=== PATIENT | female | born 1990 | race African-American/Black ===

== ENCOUNTER 2019-10-09 14:38 | Emergency (ER) | payer OTHER ==
[~2019-10-09] VITALS: Ht 154.9 cm; Wt 49.9 kg
[~2019-10-09 14:38] MED LIST: APAP500; BACTRIM DS TAB1 EACH PO; IBUPROFEN 600600 M1; LANOLIN56 GM; NORCO 5-325 TA1 EACH; PRENATAL
[2019-10-09 16:04] LABS: ABSOLUTE NEUTROPHILS 12.1 thou/uL (1.4-8.2); BASOPHILS 0.6 % (0.0-2.0); HEMATOCRIT 41.4 % (37.0-47.0); HEMOGLOBIN 13.9 gm/dL (12.0-15.0); LYMPHOCYTES 11.3 % (24.0-44.0); MCH 29.7 pg (26.0-34.0); MCHC 33.5 g/dL (28.0-37.0); MCV 88.7 fL (80.0-100.0); MONOCYTES 6.4 % (1.0-8.0); PLATELET COUNT 262 thou/uL (150-400); POLYS 81.7 % (36.0-66.0); RBC 4.67 mil/uL (4.20-5.00); WBC 14.8 thou/uL (4.0-11.0)
[2019-10-09 16:11] LABS: ANION GAP 12 mmol/L (7-16); BUN 12 mg/dL (7-18); CALCIUM 9.6 mg/dL (8.5-10.1); CHLORIDE 99 mmol/L (98-107); CO2 26 mmol/L (21-32); CREATININE 0.7 mg/dL (0.6-1.0); GLUCOSE 115 mg/dL (74-106); POTASSIUM 3.1 mmol/L (3.5-5.1); SODIUM 137 mmol/L (136-145)
[2019-10-09 16:22] LABS: ALBUMIN 4.7 g/dL (3.4-5.0); MAGNESIUM 1.9 mg/dL (1.8-2.4); SALICYLATE < 2.8 mg/dL (2.8-20.0); SGOT 17 U/L (15-37); SGPT 12 U/L (30-65); TOTAL BILIRUBIN 0.4 mg/dL (<0.1-1.0); TOTAL PROTEIN 8.8 g/dL (6.4-8.2); TROPONIN-I <0.06 ng/mL (<0.06)
[2019-10-09] MEDS ORDERED: ATIVAN1 M1 PO (16:42)
[2019-10-09 16:53] LABS: URINE BILIRUBIN NEGATIVE (Negative); URINE BLOOD TRACE (Negative); URINE CLARITY CLEAR; URINE COLOR YELLOW; URINE GLUCOSE-RANDOM* NEGATIVE (Negative); URINE KETONES 1+ (Negative); URINE LEUKOCYTES-REFLEX NEGATIVE (Negative); URINE NITRITE-REFLEX NEGATIVE (Negative); URINE PROTEIN (DIPSTICK) NEGATIVE (Negative); URINE UROBILINOGEN 0.2 E.U./dl (0.2-1.0)
[2019-10-09 17:02] LABS: AMP/METHAMP Negative (Negative); BARBITURATES Negative (Negative); BENZODIAZEPINES Negative (Negative); COCAINE POSITIVE (Negative); METHADONE Negative (Negative); OPIATES Negative (Negative); PCP Negative (Negative)
[2019-10-09 17:03] VITALS: BP 134/90
--- NOTE | 2019-10-11 09:42 | EKG ---
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: JEFF : 1990 Requested By: Brenna Salvador Order Number: [id number] MD: Matteo Anthony Measurements Intervals Spring Rate: 142 P: 82 VT: 105 QRS: 76 QRSD: 73 T: -43 QT: 302 QTc: 464 Interpretive Statements Sinus tachycardia Nonspecific ST segment abnormality Compared to ECG 06/18/2011 11:12:32 Heart rate has increased Electronically Signed On 10-11-2019 9:40:39 CDT by Matteo Anthony [email or web address] <ELECTRONICALLY SIGNED> By: Matteo Anthony MD, FACC 10/11/19 0940 [id number] Matteo Anthony MD, [facility] /EPI
== END 2019-10-09 17:03 | disposition home or self-care (01) ==
LOC: ER 14:38
PROVIDERS: Emergency Medicine
DX: R00.0 Tachycardia, unspecified (principal); F14.10 Cocaine abuse, uncomplicated; F41.9 Anxiety disorder, unspecified; R00.2 Palpitations; F17.210 Nicotine dependence, cigarettes, uncomplicated